=== PATIENT | male | born 1990 | race Hispanic/Latino ===

== ENCOUNTER 2018-05-02 13:02 | Emergency (ER) | payer OTHER ==
[2018-05-02] MEDS ORDERED: LIDOCAINE HCL-MPF 1% 2ML VIAL ONE (13:26)
[2018-05-02] MEDS ORDERED: CEFTRIAXONE SODIUM 1 GM ONE (13:26)
[2018-05-02] MEDS ORDERED: IPRATROPIUM/ALBUTEROL SULFATE 3 ML SOLUTION IH ONE (13:33)
== END 2018-05-02 14:38 | disposition home or self-care (01) ==
LOC: EDH 13:02
DX: J20.9 Acute bronchitis, unspecified (principal); Z72.0 Tobacco use; Z79.899 Other long term (current) drug therapy
CPT/HCPCS: 71046; 87804 ×2; 94640; 96372; 99284; J0696; J3490

== ENCOUNTER 2018-07-26 16:02 | Emergency (ER) | payer SELFPAY ==
[2018-07-26] MEDS ORDERED: KETOROLAC TROMETHAMINE 30MG/ML ONE (18:11)
== END 2018-07-26 18:47 | disposition home or self-care (01) ==
LOC: EDH 16:02
DX: J20.9 Acute bronchitis, unspecified (principal)
CPT/HCPCS: 71046; 96372; 99283; J1885

== ENCOUNTER 2019-09-19 16:06 | Emergency (ER) | payer SELFPAY ==
[2019-09-19] MEDS ORDERED: IBUPROFEN 600 MG TABLET ONE (17:55)
== END 2019-09-19 18:48 | disposition home or self-care (01) ==
LOC: EDH 16:06
DX: S93.401A Sprain of unspecified ligament of right ankle, initial encounter (principal); W18.30XA Fall on same level, unspecified, initial encounter; Y93.89 Activity, other specified; Y92.89 Other specified places as the place of occurrence of the external cause; Y99.8 Other external cause status
CPT/HCPCS: 73610; 73620

== ENCOUNTER 2019-09-20 15:30 | Emergency (ER) | payer SELFPAY | END 2019-09-20 18:00 | disposition home or self-care (01) | LOC: EDH 15:30 | DX: S93.601A Unspecified sprain of right foot, initial encounter (principal); Z98.890 Other specified postprocedural states; X58.XXXA Exposure to other specified factors, initial encounter; Y93.89 Activity, other specified; Y92.89 Other specified places as the place of occurrence of the external cause; Y99.8 Other external cause status | CPT/HCPCS: 73700 ==